=== PATIENT | female | born 1985 | race Caucasian/White ===

== ENCOUNTER 2019-09-24 16:05 | Inpatient (IN) | payer OTHER ==
[~2019-09-24] VITALS: Ht 162.6 cm; Wt 133.8 kg
--- NOTE | ~2019-09-24 | P ---
[facility] [place] [address] PROCEDURE REPORT Name: NELSON MENDOZA Room #: 443-P ADM IN M.R.#: [id number] Admission: 09/24/19 Attend Phys: Cheng Carson MD Discharge: Date of : 83 Report #: [id number] THIS REPORT FOR: //name// CC: Cheng Walsh MD Physician staff BRUNILDA MARCOS DATE OF SERVICE: 09/26/2019 PROCEDURE: Esophagogastroduodenoscopy with biopsies. She is a patient of Dr. Cheng Carson. INDICATION FOR PROCEDURE: Evaluate right upper quadrant pain of undetermined etiology. This patient has also been taking meloxicam. Informed consent for this procedure was obtained prior to the administration of any medication. The risks of the procedure, which include bleeding, perforation, infection, complications of sedation, and the possibility I could miss something have been explained to the patient and she has indicated her consent by signing. Anesthesia kindly provided deep sedation with propofol for this patient. DESCRIPTION OF PROCEDURE: With the patient in the left lateral decubitus position, the Olympus upper videoscope was introduced through the upper esophageal sphincter and advanced under direct visualization to the third portion of the duodenum. Findings are noted on withdrawal of the scope. The visualized portions of the proximal third, second and duodenal bulb appeared normal. There is bile seen in the duodenal lumen. Pylorus, normal mucosa. Antrum, in the antrum, there is [id number]-lgpxocqy erythema of the mucosa. This is probably from her LIM-2 inhibitor use, specifically meloxicam. Biopsies were obtained x 2 from this area for histopathology. Good hemostasis was noted after those biopsies. Body, normal mucosa. Cardia and fundus, normal mucosa. Retroflex view did not reveal any hiatal hernia. The scope was withdrawn into the esophagus. The Z-line is appropriately located at the top of the gastric folds and appears normal. The esophageal mucosa appears normal throughout its entirety. The scope was withdrawn. The patient went to the recovery area in stable condition. She tolerated the procedure well. IMPRESSION: 1. Mild to moderate gastric antral erythema. Biopsies are pending. I do not think this explains her current abdominal pain situation. 2. Normal duodenum to the third portion. [address] [address] PROCEDURE REPORT Name: NELSON MENDOZA Room #: 443-P [facility] IN ..#: [id number] Admission: 09/24/19 Attend Phys: Cheng Carson MD Discharge: Date of : 83 Report #: [id number] 3. Normal esophagus. RECOMMENDATIONS: My recommendations were for her to start on proton pump inhibitors, specifically Protonix 40 mg p.o. every day. We will await the biopsy results. She is going to be n.p.o. after midnight for a laparoscopic cholecystectomy tomorrow morning by Dr. Kris Walsh. Thank you very much once again for allowing me to participate in her care, Dr. Carson and Dr. Walsh. By: 1500 2349 Tamia Mann, DO /nt
[~2019-09-24 16:05] MED LIST: CYCLOBENZAPRINE5 MG PO; GENTAMICIN SU3 MG/ML OP; LISINOPRIL10 MG PO; MOBIC7.5 MG PO; NORCO 5-325 TA1 EACH PO; PROAIR HFA8.5 GM; SINGULAIR 10 MG10 M1 PO; XANAX 0.5 MG0.5 MG PO
[2019-09-24 16:11] VITALS: BP 168/85
[2019-09-24 18:03] LABS: ABSOLUTE NEUTROPHILS 4.6 thou/uL (1.4-8.2); BASOPHILS 1.2 % (0.0-2.0); EOSINOPHILS 1.9 % (0.0-3.0); HEMATOCRIT 40.7 % (37.0-47.0); HEMOGLOBIN 13.7 gm/dL (12.0-15.0); LYMPHOCYTES 33.6 % (24.0-44.0); MCH 31.6 pg (26.0-34.0); MCHC 33.7 g/dL (28.0-37.0); MCV 93.9 fL (80.0-100.0); MONOCYTES 5.8 % (1.0-8.0); PLATELET COUNT 251 thou/uL (150-400); POLYS 57.5 % (36.0-66.0); RBC 4.34 mil/uL (4.20-5.00); RDW 13.9 % (10.5-14.5)
[2019-09-24 18:07] LABS: CREATININE 0.8 mg/dL (0.6-1.0); POTASSIUM 3.2 mmol/L (3.5-5.1)
[2019-09-24 18:15] LABS: ALBUMIN 3.9 g/dL (3.4-5.0); TOTAL BILIRUBIN 0.5 mg/dL (<0.1-1.0); TOTAL PROTEIN 7.4 g/dL (6.4-8.2)
[2019-09-24 19:28] LABS: PROTIME 10.8 Seconds (9.3-11.4)
[2019-09-24 19:31] VITALS: BP 146/70
[2019-09-24 20:35] VITALS: BP 142/81
[2019-09-24 21:54] VITALS: BP 133/74
--- NOTE | 2019-09-25 03:04 | NUR ---
PT ARRIVED ON THE UNIT @2039 FROM ER A&OX4 WITH C/O PAIN MEDS GIVEN. IV INTACT AND FLUIDS INFUSING. PT ORIENTED TO THE UNIT AND ADMISSION CHARTED. PT NPO FOR GALL BLADDER REMOVER TOMORROW. DENIES N/V THIS SHIFT. PT AD DOMINIK TO BATHROOM CALLS TO LET NEEEDS KNOWN. FAMILY AT BEDSIDE FOR THE NIGHT. CALL LIGHT WITHIN REACH WILL CONT WITH POC TILL EOS.
[2019-09-25 05:00] VITALS: BP 137/59
[2019-09-25 06:02] LABS: HEMATOCRIT 36.2 % (37.0-47.0); HEMOGLOBIN 12.3 gm/dL (12.0-15.0); MCH 32.2 pg (26.0-34.0); MCV 94.7 fL (80.0-100.0); RBC 3.83 mil/uL (4.20-5.00); RDW 14.3 % (10.5-14.5); WBC 5.9 thou/uL (4.0-11.0)
[2019-09-25 06:17] LABS: CREATININE 0.8 mg/dL (0.6-1.0); MAGNESIUM 1.7 mg/dL (1.8-2.4); POTASSIUM 3.1 mmol/L (3.5-5.1)
[2019-09-25 08:00] VITALS: BP 138/89
--- NOTE | 2019-09-25 08:40 | EKG ---
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
--- NOTE | 2019-09-25 09:42 | NUR ---
PT CARE ASSUMED AT 0700. A&Ox4. PT. EXPERIENCING NAUSEA WHICH IS CONTROLLED WITH MEDS. FLUIDS RUNNING. ABDOMINAL PAIN AND TENDER TO THE TOUCH. PT IS AWAITING A LAP CHOLY TODAY. NO CONSENT SIGNED, AWAITING MD PREOP CONSULT. MOTHER AND PT. SPOUSE PRESENT IN ROOM. PT HAS BEEN NPO SINCE MIDNIGHT. PT ON ROOM AIR. PT SLEEPING MOST OF THE MORNING
[2019-09-25 21:30] VITALS: BP 130/77
--- NOTE | 2019-09-26 02:55 | NUR ---
ASSUMED CARE OF PT @1900 PT ASSESSED AT START OF SHIFT PT AND FAMILY WORRIED ABOUT WHY PT HAVEN'T HAD SURGERY TO REMOVE GALL BLADDER AND THEY INSISTED ON WANTING A TRANSFER TO [facility] TO GET A BETTER CARE AND HAVE SURGERY DONE. THIS NURSE EDUCATED PT AND FAMILY ABOUT PROCEDURE AND INFORMED ABOUT A GI MRCP CONSULT TOMORROW. PT AND FAMILY STILL INSIST ON TRANSFER CALLED AND NOTIFIED [facility] AND SPOKE WITH MARIANA TUCKER. [facility] CALLED TO LET THIS NURSE KNOW THAT A BED WAS AVAILABLE BUT PHYSICIAN IS NOT PRESENT TONIGHT TO SEE PT. INFORMED PT AND FAMILY AND REDUCATED THEM ABOUT THE PROCEDUE PER MARIANA ORDERS AND FAMILY DECIDED WILL SPEND THE NIGHT AND CONTINUE WITH CARE. MEDS GIVEN FOR PAIN AND NAUSEA NO EMESIS NOTED. PT NPO AT MIDNIGHT. WILL CONT WITH POC TILL EOS.
[2019-09-26 05:00] VITALS: BP 146/75
--- NOTE | 2019-09-26 07:30 | NUR ---
Nutrition: Assess due to BMI >40 (50.6 kg/m2). Pt with class III high risk obesity. Will defer diet education at this time, not deemed appropriate given current pt condition. Here for cholelithiasis, intractable pain. NPO and awaiting possible gallbladder surgery this date. Will reassess if nutrition ed more appropriate at later time. Will follow for timely diet advance after any testing and/or surgical procedures.
[2019-09-26 07:56] VITALS: BP 123/61
--- NOTE | 2019-09-26 10:33 | NUR ---
PT CARE ASSUMED AT 0700. A&Ox4. PT IN PAIN THIS MORNING RECEIVED PAIN MEDICATION. FLUIDS RUNNING. SECOND DOSE OF POTASSIUM RECEIVED. PT. IS STILL WANTING TO TRANSFER TO [facility] DEPENDING ON TIMING OF TESTS WE ARE DOING. GI CONSULTED THIS MORNING. PT IS HAVING A KATIE THIS AFTERNOON NO PAIN MEDICATIONS FOR 6 HOURS PRIOR DUE TO TEST. POSSIBLE EGD LATER TODAY. FAMILY IN ROOM. PT RESTING BED. IV INTACT WITH NO SWELLING OR REDNESS. BED IN LOW POSITION LOCKED WITH BED ALRM ON. CALL LIGHT IN REACH. SCDS IN PLACE. PT. EXPERIENCES NAUSEA WITH NO VOMITTING.
[2019-09-26 15:00] VITALS: BP 123/61
[2019-09-26 16:10] LABS: CALCIUM 8.5 mg/dL (8.5-10.1); CREATININE 0.6 mg/dL (0.6-1.0); MAGNESIUM 2.2 mg/dL (1.8-2.4); POTASSIUM 4.5 mmol/L (3.5-5.1)
[2019-09-26 16:34] VITALS: BP 179/90
[2019-09-26 17:59] VITALS: BP 159/98
[2019-09-26 19:50] VITALS: BP 148/76
--- NOTE | 2019-09-27 03:53 | NUR ---
PT ASSESSED AT START OF SHIFT WITH C/O PAIN. PAIN MEDS GIVENA ND PARTIAL RELIEF AFTERWARDS. ZOFRAN ALSO GIVEN FOR NAUSEA THIS SHIFT NO EMESIS NOTED. FAMILY AT BEDSIDE FOR THE NIGHT. PT NPO AFTER MIDNIGHT FOR SURGERY TOMORROW. IV INTACT IN RT UA AND FLUIDS INFUSING. CALL LIGHT WITHIN REACH WILL CONT WITH POC TILL EOS.
[2019-09-27 03:55] VITALS: BP 141/90
[2019-09-27 07:36] VITALS: BP 140/60
[2019-09-27 08:00] VITALS: BP 154/54
[2019-09-27] MEDS ORDERED: PERCOCET PO (12:46)
[2019-09-27] MEDS ORDERED: PROTONIX40 M2 PO (12:46)
--- NOTE | 2019-09-27 15:49 | NUR ---
ASSESSMENT-PT LIVES AT HOME WITH HER . PT IS INDEPENDENT OF ADLS AND AMBULATION. PT DRIVES. PT VOICES NO CONCERNS RELATED TO DC. PT SAYS SHE DOES NOT THINK HER PAIN IS UNDER CONTROL YET AND IS REQUIRING IV PAIN MEDS STILL. AND AUNT AT THE BEDSIDE. FOR ANY DC NEEDS CALL DOROTHEA YOUNG [phone], EXT [phone]. NO DC NEEDS ANTICIPATED.
[2019-09-27 16:36] VITALS: BP 141/62
[2019-09-27 20:00] VITALS: BP 130/61
--- NOTE | 2019-09-28 01:58 | NUR ---
ASSUMED CARE OF PATIENT AT SHIFT CHANGE. ASSESSMENT CHARTED. MEDICATIONS GIVEN PER MAR. PATIENT A&OX4, VSS, O2 SATS WNL ON RA. PATIENT COMPLAINS OF PAIN 9/10 ON UPPER ABDOMEN AND 3/10 ON INCISION SITES. PRN PAIN MEDICATION IS BEING GIVEN IN 2HR INTERVALS IT IS NOT RELIEVED. PATIENT UP TO BATHROOM W ASSIST FROM MOTHER W NO ISSUES OTHER THAN PAIN. APPETITE ADEQUATE, FLUID INTAKE ADEQUATE. SCD'S IN PLACE, URINE OUTPUT ADEQUATE. PT HAD A SMEAR OF BM BEFORE PROCEDURE. PATIENT STATES ABDOMINAL DISCOMFORT IS RELIEVED BY BELCHING AND FLATUS. FAMILY IS AT BEDSIDE. PATIENT CALLS OUT APPROPRIATELY. PER CM, WE WILL CONTINUE TO MONITOR PATIENT AND TRY TO ESTABLISH BETTER PAIN CONTROL; AND PATIENT WILL DC BACK HOME ONCE PAIN IS MANAGEABLE.
[2019-09-28 07:30] VITALS: BP 125/69
[2019-09-28] MEDS ORDERED: MIRALAX119 GM PO (09:49)
[2019-09-28 15:35] VITALS: BP 145/62
[2019-09-28 16:22] VITALS: BP 145/62
--- NOTE | 2019-09-28 17:00 | NUR ---
PT ASSESSED AT START OF SHIFT. NO BM SINCE SURGERY AND C/O ABD PAINS. REQUESTED IV DILAUDID ON REGULAR BASIS. ENC TO AMBULATE THE HALLS WHICH SHE DID [address] HERRON HERE THIS AFTERNOON TO SEE PT AND SEE DISCHARGED AFTER.
--- NOTE | 2019-09-30 15:34 | O ---
[facility] [address] [place] [address] OPERATIVE REPORT Name: NELSON MENDOZA Pa Room #: 443-P [facility] IN M.R.#: [id number] Admission: 09/24/19 Attend Phys: Cheng Carson MD Discharge: 09/28/19 Date of : 83 Report #: [id number] THIS REPORT FOR: //name// CC: Cheng Carson Physician staff [facility] DATE OF SERVICE: 09/27/2019 PROCEDURE PERFORMED: Laparoscopic cholecystectomy. PREOPERATIVE DIAGNOSIS: Acute cholecystitis. POSTOPERATIVE DIAGNOSIS: Symptomatic cholelithiasis. SURGEON: Dr. Walsh. ASSISTANTS: None. ANESTHESIA: 1. General 2. Local. ESTIMATED BLOOD DICTATION ENDS HERE <ELECTRONICALLY SIGNED> By: Kris Walsh MD 09/30/19 1534 1740 1800 Kris Walsh MD /nt
--- NOTE | 2019-09-30 16:06 | PATH ---
[facility] [address] [place] [address] PATHOLOGY RPT PROCEDURE Name: REJINELSON Room #: 443-P DIS IN M.R.#: [id number] Admission: 09/24/19 Date of : 83 Discharge: 09/28/19 Report #: [id number] Path Case #: [id number] [facility] Accession Number: [id number] . 01 Material submitted: . stomach - RANDOM GASTRIC BIOPSY R/O H. PYLORI . 01 Clinical history: . Abdominal pain, nausea Mild to moderate distal gastric erythema Rule out H. pylori . 02 Diagnosis: Gastric mucosa, random gastric rule out H. pylori, endoscopic biopsy: - Mild reactive gastropathy. - Negative for intestinal metaplasia or atrophy. - Negative for Helicobacter pylori (properly controlled immunohistochemical stain performed). (IUV/db; 09/30/2019) LBQ 09/30/2019 1207 Local . 02 Electronically signed: . Kaleigh Whaley MD, Pathologist NPI- [id number] . 01 Gross description: . The specimen is received in formalin, labeled "Nelson Mendoza random gastric BX" and consists of 2 fragments of pink-tamayo tissue measuring 0.2 x 0.2 cm and 0.3 x 0.2 cm which are entirely submitted in A1. (SDY; 09/27/2019) SYU/SYU 09/27/2019 1214 Local . 02 Pathologist provided ICD-10: K31.9 . 02 CPT . 351680, A74645 Specimen Comment: A courtesy copy of this report has been sent to [phone] Specimen Comment: [phone], Specimen Comment: Report sent to , and Performed at: [address] [id number] MD Jean Spencer MD Phone: [phone] Performed at: 02 [place] [address] PATHOLOGY RPT PROCEDURE Name: NELSON MENDOZA Room #: 443-P DIS IN M.R.#: [id number] Admission: 09/24/19 Date of : 83 Discharge: 09/28/19 Report #: [id number] Path Case #: [id number] [address] [facility], [place], [place] [id number] MD Kaleigh Whaley MD Phone: [phone]
--- NOTE | 2019-09-30 16:06 | PATH ---
[facility] [address] [place] [address] PATHOLOGY RPT PROCEDURE Name: NELSON MENDOZA Pa Room #: 443-P [facility] IN .R.#: [id number] Admission: 09/24/19 Date of : 83 Discharge: 09/28/19 Report #: [id number] Path Case #: [id number] [facility] Accession Number: [id number] . 01 Material submitted: . gallbladder - GALLBLADDER . 01 Clinical history: . Cholecystitis . 02 Diagnosis: Gallbladder, cholecystectomy: - Mild chronic cholecystitis. - Cholesterolosis. - Cholelithiasis. - Incidental reactive lymph node. (IUV:pit; 09/30/2019) QTP 09/30/2019 1511 Local . 02 Electronically signed: . Kaleigh Whaley MD, Pathologist NPI- [id number] . 01 Gross description: . The specimen is received in formalin labeled "Nelson Mendoza, gallbladder" and consists of an intact pink-tamayo smooth shiny gallbladder measuring 8.0 x 2.5 x 2.3 cm. The margin is inked black. Opening reveals a lumen filled with tenacious green bile and multiple multifaceted calculi measuring 4.5 x 3.5 cm. The mucosa is green with moderate yellow stippling and an average wall thickness of 0.1 cm. No masses are identified. Adjacent the gallbladder neck is a lymph node measuring 1.1 x 0.6 cm. Reservations Manager sections are submitted in A1-A2. (SDY; 09/27/2019) SYU/SYU 09/27/2019 1705 Local . 02 Pathologist provided ICD-10: K80.10, K82.4 . 02 CPT . 744043 Specimen Comment: A courtesy copy of this report has been sent to [phone] Specimen Comment: Report sent to Performed at: [address] [id number] MD Jean Spencer MD Phone: [phone] Performed at: 02 [place] [address] PATHOLOGY RPT PROCEDURE Name: REJICLEMENTINARobert Winn Room #: 443-P DIS IN M.R.#: [id number] Admission: 09/24/19 Date of : 83 Discharge: 09/28/19 Report #: [id number] Path Case #: [id number] [facility] [address], [place], [place] [id number] MD Kaleigh Whaley MD Phone: [phone]
--- NOTE | 2019-10-01 17:02 | O ---
[facility] [place] [address] OPERATIVE REPORT Name: NELSON MENDOZA Room #: 443-P [facility] IN ..#: [id number] Admission: 09/24/19 Attend Phys: Cheng Carson MD Discharge: 09/28/19 Date of : 83 Report #: [id number] THIS REPORT FOR: //name// CC: Cheng Carson Physician [facility] DATE OF SERVICE: 09/27/2019 PROCEDURE PERFORMED: Laparoscopic cholecystectomy. PREOPERATIVE DIAGNOSIS: Acute cholecystitis. POSTOPERATIVE DIAGNOSIS: Symptomatic cholelithiasis. SURGEON: Kris Walsh M.D. ASSISTANTS: None. ANESTHESIA: 1. General. 2. Local. ESTIMATED BLOOD LOSS: Less than 5 mL. URINE OUTPUT: Not measured. COMPLICATIONS: None. FINDINGS: 1. Normal biliary anatomy. 2. Large cholelithiasis with narrow diameter cystic duct. 3. No pericholecystic fluid or findings otherwise to suggest cholecystitis. 4. Severe morbid obesity with large volume intraabdominal fat. SPECIMENS: Gallbladder and contents. INDICATIONS FOR PROCEDURE: The patient is a 34-year-old female, who presented with abdominal pain. The patient was transferred here from an outside hospital with an ultrasound report that was very nondescript and inadequate. The ultrasound was repeated and demonstrated a common bile duct of 7 mm. An MRCP was obtained that demonstrated no choledocholithiasis or cholecystitis. Therefore, Gastroenterology was consulted for other etiologies regarding her abdominal pain before a cholecystectomy. The patient underwent an EGD and was found to have gastritis, but the gastritis was not severe enough to be an explanation for her pain. Therefore, we did discuss the cholecystectomy. [facility] [address] [place] [address] OPERATIVE REPORT Name: NELSON MENDOZA Pa Room #: 443-P [facility] IN .R.#: [id number] Admission: 09/24/19 Attend Phys: Cheng Carson MD Discharge: 09/28/19 Date of : 83 Report #: [id number] patient's family was very irritated with me, the ER doc, and the secretary book keeper ____ throughout the course of her hospitalization. They did yell at me several times. I did tell the nurses that I do not know what I am doing. The patient's family after I agreed to operate on her was very kind and supportive of me, however, I was still not trusting their royalty. The risks, benefits, and alternatives of the procedure were discussed with the patient, her family member, and her loved one. The risks discussed included, but were not limited to, the risk of bleeding, infection, conversion to open, damage to any intraabdominal organ including small bowel, liver, kidney, spleen, blood vessels, nerves, colon, stomach, etc., damage to the common bile duct, necessitating further surgery, further hospitalization could be a life altering event, postoperative bile leak, postoperative abscess, conversion to open, anesthesia (cardiac, pulmonary, neurologic type complications), need for any further hospitalization, need for any further procedures, and . The patient and her entire family had the opportunity to ask questions. All questions were answered to the best of my ability. At the end of the discussion, they were wishing for me to proceed with the surgery. DESCRIPTION OF PROCEDURE: After the informed consent was obtained as above, the patient was taken to the operating room and placed in a supine position. General anesthesia was induced. Preprocedure antibiotics were administered and the anterior abdomen was prepped and draped in the usual sterile fashion. The timeout was performed. A 5-mm supraumbilical incision was made. A Veress needle was inserted. Pneumoperitoneum was created. This took one attempt. A 5 mm long port was passed through the patient's abdominal wall into the peritoneal cavity. Lighted laparoscope was inserted. Next, the following ports were placed in the standard fashion under direct visualization: found a 12 mm subxiphoid port and two 5 mm right upper quadrant ports. All ports were placed without any difficulty. Next, the dome of the gallbladder was grasped and retracted towards the patient's right. The neck of the gallbladder was grasped and retracted towards the patient's right. The triangle of [place] was incised and the peritoneum was opened up medially and laterally towards the hepatic surface and up towards the dome of the gallbladder on both sides. [place] of [place] was then dissected out using extreme caution. The cystic duct was dissected out circumferentially. The cystic artery was dissected out circumferentially. Our critical view was obtained and we had 2 and only 2 structures coming into and out of the gallbladder. We had the triangle of [place] dissected down. We had a cystic plate cleaned off half way up the gallbladder body posteriorly. The cystic artery was adjacent to the gallbladder and had to be carefully dissected away without injuring it. It was never injured throughout the course of the procedure. The cystic duct was clipped with 2 clips proximally and 1 clip distally. The cystic artery was very, very small and therefore electrocauterized. The gallbladder was then retracted off the cystic plate, dissected free, passed in laparoscopic retrieval bag, and removed out the 12 mm port site under direct visualization. The right upper quadrant [facility] [address] [place] [address] OPERATIVE REPORT Name: NELSON MENDOZA Room #: [facility] IN ..#: [id number] Admission: 09/24/19 Attend Phys: Cheng Carson MD Discharge: 09/28/19 Date of : 83 Report #: [id number] was reinspected. The clips were found to be intact and in place. All free fluid was suctioned out. The 12 mm port site fascia was closed using Vicryl in a laparoscopic fascial closure fashion. The pneumoperitoneum was released. The skin was closed using 4-0 Monocryl in an interrupted subcuticular fashion. The abdomen was clean and dry and Dermabond was applied. The patient tolerated the procedure well. There were no adverse events throughout the course of procedure. She was extubated and transferred to the PACU in a stable condition. <ELECTRONICALLY SIGNED> By: Kris Walsh MD 10/01/19 1702 1534 1657 Kris Walsh MD /nt
== END 2019-09-28 16:47 | disposition home or self-care (01) | DRG 418 ==
LOC: ER 16:05 → 4S 19:13 → EROBS 19:13 → 4S 19:13
PROVIDERS: Emergency Medicine Emergency Medical Services; Nurse Practitioner Acute Care; ADMIT Hospitalist
PROC: 0DB78ZX Excision of Stomach, Pylorus, Via Natural or Artificial Opening Endoscopic, Diagnostic (ICD-10-PCS; principal; 2019-09-26)
PROC: 0FT44ZZ Resection of Gallbladder, Percutaneous Endoscopic Approach (ICD-10-PCS; 2019-09-27)
DX: K80.00 Calculus of gallbladder with acute cholecystitis without obstruction (principal); Z68.43 Body mass index [BMI] 50.0-59.9, adult; F17.210 Nicotine dependence, cigarettes, uncomplicated; E66.01 Morbid (severe) obesity due to excess calories; F41.9 Anxiety disorder, unspecified; F12.90 Cannabis use, unspecified, uncomplicated; E87.6 Hypokalemia; K58.0 Irritable bowel syndrome with diarrhea; I10 Essential (primary) hypertension; K29.70 Gastritis, unspecified, without bleeding; K76.0 Fatty (change of) liver, not elsewhere classified; L53.8 Other specified erythematous conditions; J45.909 Unspecified asthma, uncomplicated; Z79.899 Other long term (current) drug therapy; Z91.09 Other allergy status, other than to drugs and biological substances; Z82.49 Family history of ischemic heart disease and other diseases of the circulatory system; Z83.3 Family history of diabetes mellitus; Z80.41 Family history of malignant neoplasm of ovary; Z80.8 Family history of malignant neoplasm of other organs or systems
CPT/HCPCS: 10195; 50010; 50101; 50249; 50411; 50555; 50558; 51489; 52265; 52266; 53307; 53310; 54022; 54118; 55245; 56462; 56525; 56526; 62110; 62900; 70005